=== PATIENT | male | born 1975 | race Caucasian/White ===

== ENCOUNTER 2021-04-30 09:33 | Day surgery (SDC) | payer BC ==
[2021-04-28 10:49] VITALS: BMI 26.9
[~2021-04-30 09:33] MED LIST: DEXAMETHASONE SOD PHOSPHATE 4 MG/ML 1 ML VIAL IV ONE; FAMOTIDINE 20 MG/2 ML VIAL IV PRN; HYDROmorphone 0.5 MG/0.5 ML SYRINGE IVP PRN; LACTATED RINGERS 1,000 ML IV SCH; LIDOCAINE 1% (10MG/ML) FOR IV START INTRADERMA PRN; MIDAZOLAM 2 MG/2 ML VIAL IV PRN; ONDANSETRON 4 MG/2 ML VIAL IVP ONE
[2021-04-30] MEDS ORDERED: OXYMETAZOLINE 0.05% NASL SPRAY 1 SPRAY BOTTLE ONE (10:23)
[2021-04-30] MEDS ORDERED: LIDOCAINE 1% INJ 10MG/ML (20 ML MDV) ONE (12:44)
[2021-04-30] MEDS ORDERED: .fentaNYL (PF) 50 MCG/ML 2 ML AMP ONE (12:44)
[2021-04-30] MEDS ORDERED: PROPOFOL 10 MG/ML 20 ML VIAL IV ONE (12:44)
[2021-04-30] MEDS ORDERED: SUCCINYLCHOLINE CHLORIDE 100 MG/5 ML SYR IV ONE (12:44)
[2021-04-30] MEDS ORDERED: MIDAZOLAM 2 MG/2 ML VIAL ONE (12:44)
[2021-04-30] MEDS ORDERED: LACTATED RINGERS 1,000 ML IV ONE (13:00)
[2021-04-30] MEDS ORDERED: BUPIVACAINE (PF) 0.25% 30 ML VIAL SQ ONE (13:05)
[2021-04-30] MEDS ORDERED: LIDOCAINE 1%-EPI 1:100,000 20 ML VIAL SQ ONE (13:05)
[2021-04-30] MEDS ORDERED: BACITRACIN ZINC 500 UNIT/GM OINT 28.4 GM TUBE TOPICAL ONE ×2 (13:35→13:55)
[2021-04-30 14:22] VITALS: TEMP 97.9
--- NOTE | 2021-04-30 15:24 | P.OP ---
Date of Procedure: 04/30/21 Preoperative Diagnosis: Deviated nasal septum Nasal septal perforation Hypertrophy of inferior nasal turbinates Postoperative Diagnosis: Same Procedure(s) Performed: Septoplasty Surgical repair of septal perforation Bilateral submucosal resection of the inferior nasal turbinates with outfracturing compression Anesthesia: BRITTNYA Surgeon: Modesto Lucas Estimated Blood Loss (ml): 10 Pathology: other (Nasal) Condition: stable Disposition: PACU Description of Procedure: DESCRIPTION OF OPERATION: This patient was taken to the operative room and placed in the supine position. A general inhalation anesthetic was administered to the patient by the department of anesthesia with a functioning IV line in place. The patient was monitored throughout the entire case by the department of anesthesia. The eyes were taped shut for protection. The patient was placed in a slight reverse Trendelenburg position. The patient had previously utilize Afrin nasal spray preoperatively. The nose was evaluated and the septum lateral nasal wall and inferior turbinates were injected with lidocaine 1% with epinephrine 1 100,000 bilaterally. Approximately 10 minutes were allowed wait for full vasoconstrictive effects to take place. At this point a caudal incision was made over the caudal portion of the left septum down to the mucoperichondrium. A mucoperichondrial flap was elevated on the left side and dissection was carried with use of tunnels posteriorly. We then made a crossover incision through the cartilage to the contralateral side and for the mucoperichondrial flap development was performed to the extent of visualization on the contralateral side. After the cartilage was freed with use of several crosshatching incisions and removal of some redundant strips of septal cartilage, the septum was straightened and placed back in the midline. The septum was sutured fixated to the vomerian groove. Excellent straightening occurred and the septum was visibly straight. This patient had a septal perforation posteriorly and the septal perforation was closed with the use of upper and lower mucosal flap transposition. We released the mucosa from the floor the nose underneath the inferior turbinates and we also developed a rotational flap from above on the unilateral side. We harvested septal cartilage and placed that an interposition. We sutured the septal flaps and the interposition cartilage with 50 and 4 rapid Vicryl. This was stabilized with use of a splint at the end of the case. Incision was closed with a 40 rapid Vicryl. We utilized a running nonlocking fashion for closure of the incision. A quilting stitch was used to re approximate the septal flaps with use of a 40 rapid Vicryl. Attention was then paid to the inferior turbinates. The bilateral inferior turbinates were hypertrophic and obstructive. We entered the anterior portion of the inferior turbinates with use of a microdebrider. We remove bone and submucosal elements with use of a microdebrider bilaterally. The inferior turbinates underwent a submucosal resection with removal of submucosal tissue and bone. We obtained a much better and normal in size for breathing. The inferior turbinates were then outfractured and compressed with a [place] nasal elevator. Excellent airway was obtained and was symmetric bilaterally. No bleeding was encountered. A ring block injection was performed around the outside of the nose utilizing bupivacaine and lidocaine with epinephrine. Intranasal splints were inserted and fixated at the end of the case. We utilized [place] nasal splints. There will be removed and the patient returns to the office
[2021-04-30 15:36] VITALS: RESP 16
[2021-04-30 16:30] VITALS: BP 143/92; PULSE 74
== END 2021-04-30 16:52 | disposition home or self-care (01) ==
LOC: OR 09:33
PROVIDERS: ATTEND Otolaryngology
DX: J34.2 Deviated nasal septum (principal); J34.89 Other specified disorders of nose and nasal sinuses; J34.3 Hypertrophy of nasal turbinates; Z79.899 Other long term (current) drug therapy
CPT/HCPCS: 30630; 30520; 30140; J2250; J1100; J2405; J2001; J3010; J0330; J2704; J1170